=== PATIENT | female | born 1955 | race Caucasian/White ===

== ENCOUNTER → 2021-08-21 | Outpatient (CLI) | payer OTHER | LOC: EXRD 15:32 | DX: R05 Cough (principal) | CPT/HCPCS: 71046 ==

== ENCOUNTER → 2022-04-02 | Outpatient (CLI) | payer OTHER | LOC: KOH-I 11:49 | DX: R06.02 Shortness of breath (principal); R53.83 Other fatigue; J20.9 Acute bronchitis, unspecified | CPT/HCPCS: 71046 ==